=== PATIENT | male | born 1965 | race Caucasian/White ===

== ENCOUNTER → 2016-10-08 | Outpatient (CLI) | payer OTHER ==
[~2016-10-08] MED LIST: BACL10TA PO; COLC0.6T7 PO; FEBU80TA PO; MULT1TAB69 PO; OXYC-202 PO
[2016-10-08 16:35] LABS: BASOPHILS # (AUTO) 0.1 10^3/uL (0.0-0.1); BASOPHILS % (AUTO) 1 % (0-10); EOSINOPHILS # (AUTO) 0.3 10^3/uL (0.0-0.3); EOSINOPHILS % (AUTO) 6 % (0-10); LYMPHOCYTES # (AUTO) 2.4 X 10^3 (1.0-4.0); LYMPHOCYTES % (AUTO) 41 % (12-44); MEAN CORPUSCULAR HEMOGLOBIN 30 PG (25-34); MEAN CORPUSCULAR HGB CONC 34 G/DL (32-36); MEAN CORPUSCULAR VOLUME 86 FL (80-99); MEAN PLATELET VOLUME 10.4 FL (7.4-10.4); MONOCYTES # (AUTO) 0.9 X 10^3 (0.0-1.0); MONOCYTES % (AUTO) 15 % (0-12); NEUTROPHILS # (AUTO) 2.2 X 10^3 (1.8-7.8); NEUTROPHILS % (AUTO) 38 % (42-75); PLATELET COUNT 235 10^3/uL (130-400); RED BLOOD COUNT 5.11 10^6/uL (4.35-5.85); RED CELL DISTRIBUTION WIDTH 13.8 % (10.0-14.5); WHITE BLOOD COUNT 5.9 10^3/uL (4.3-11.0)
[2016-10-08 16:56] LABS: ANION GAP 8 MMOL/L (5-14); BLOOD UREA NITROGEN 12 MG/DL (7-18); BUN/CREATININE RATIO 12; CALCIUM 9.5 MG/DL (8.5-10.1); CARBON DIOXIDE 29 MMOL/L (21-32); CHLORIDE 104 MMOL/L (98-107); CREATININE SERUM 1.03 MG/DL (0.60-1.30); GFR ESTIMATED > 60; GLUCOSE 90 MG/DL (70-105); POTASSIUM 4.4 MMOL/L (3.6-5.0); SODIUM 141 MMOL/L (135-145)
[2016-10-08 17:13] LABS: THYROID STIMULATING HORMONE 1.44 UIU/ML (0.35-4.94)
== END ==
LOC: LAB 16:13
PROVIDERS: ATTEND Internal Medicine
DX: R53.83 Other fatigue (principal); R20.0 Anesthesia of skin
CPT/HCPCS: 36415; 80048; 82607; 84443; 85025

== ENCOUNTER → 2016-12-09 | Outpatient (CLI) | payer OTHER ==
[~2016-12-09] MED LIST changes: +GADOBUTROL 10 MMOL/10 ML (GADAVIST) VIAL IV ONE
--- NOTE | 2016-12-09 11:40 | Diagnostic Imaging Report ---
PROCEDURE: MR imaging cervical spine with and without contrast. TECHNIQUE: Multiplanar and multisequence MRI of the cervical spine was performed with and without contrast. INDICATION: Bilateral hand numbness and tingling. 10 mL of Omnipaque 350 is administered intravenously. FINDINGS: There is satisfactory alignment of the posterior spinal line. There is slight straightening of the lordotic curvature in the cervical spine. The vertebral body heights are preserved. There is disc desiccation at all levels. There is slight disc height loss at C4/5 and moderate disc height loss at C5/6 level. The bone marrow signal is within normal limits with no focal lesion or enhancing mass. The craniocervical junction appears normal. C2/3: There is no disc herniation, no spinal canal or foraminal stenosis. C3/4, there is no disc herniation. No spinal canal or foraminal stenosis. C4/5: There is a prominent disc spur complex with a right posterior-lateral disc protrusion projecting 6 mm posteriorly into the right lateral recess. There is a possible contribution of right uncovertebral hypertrophy and osteophyte projecting posteriorly at this level. There is moderate central canal stenosis reducing the AP dimension of the spinal canal to 7.6 mm. This is slightly displacing the spinal cord posteriorly and to the left and results in minimal cord compression. There is mild cord signal abnormality without enhancement seen at this level more prominent in the left side of the cord. There is bilateral mild to moderate foraminal narrowing from uncovertebral and facet joint hypertrophy bilaterally. C5/6: There is disc spur complex associated with moderate central canal stenosis reducing the AP dimension of the spinal canal to 7.7 mm. There is no cord compression. The disc however indents the thecal sac and is abutting the anterior margin of the spinal cord at this level. No significant foraminal stenosis at this level. C6-7: There is a prominent anterior osteophyte. No posterior osteophytes or disc herniation. No spinal canal or foraminal stenosis. C7/T1: No disc herniation, no spinal canal or foraminal stenosis. No enhancing lesion in the spinal canal or within the spinal cord. IMPRESSION: Degenerative changes most prominent at C4/5 and C5/6 levels. There is minimal cord compression and cord signal abnormality at C4-5 level. Dictated by: Dictated on workstation # [id number]
[2016-12-10 07:30] LABS: LIGHT CHAIN KAPPA SERUM QUANT 10.57 mg/L (3.30-19.40); LIGHT CHAIN LAMBDA SERUM QUANT 8.54 mg/L (5.71-26.30)
[2016-12-11 07:32] LABS: CLIN PATHOLOGY REPORT FOOTNOTE
[2016-12-11 11:14] LABS: ANATOMIC PATH ADDENDUM REPORT FOOTNOTE
[2016-12-14 17:07] LABS: IMMUNOFIX PATH REPORT NUMBER Complete (Complete)
== END ==
LOC: RAD 08:30
DX: R20.0 Anesthesia of skin (principal)
CPT/HCPCS: 36415; 72156; 83883; 86334

== ENCOUNTER 2016-12-23 13:00 | Outpatient (CLI) | payer OTHER ==
[~2016-12-23] VITALS: Ht 182.9 cm; Wt 100.8 kg
[~2016-12-23 13:00] MED LIST changes: -BACL10TA PO; -GADOBUTROL 10 MMOL/10 ML (GADAVIST) VIAL IV ONE; -MULT1TAB69 PO; -OXYC-202 PO
[2016-12-23 13:59] LABS: BASOPHILS # (AUTO) 0.1 10^3/uL (0.0-0.1); BASOPHILS % (AUTO) 1 % (0-10); EOSINOPHILS # (AUTO) 0.2 10^3/uL (0.0-0.3); EOSINOPHILS % (AUTO) 3 % (0-10); LYMPHOCYTES # (AUTO) 2.9 X 10^3 (1.0-4.0); LYMPHOCYTES % (AUTO) 41 % (12-44); MEAN CORPUSCULAR HEMOGLOBIN 30 PG (25-34); MEAN CORPUSCULAR HGB CONC 34 G/DL (32-36); MEAN CORPUSCULAR VOLUME 86 FL (80-99); MEAN PLATELET VOLUME 10.4 FL (7.4-10.4); MONOCYTES # (AUTO) 0.5 X 10^3 (0.0-1.0); MONOCYTES % (AUTO) 7 % (0-12); NEUTROPHILS # (AUTO) 3.4 X 10^3 (1.8-7.8); NEUTROPHILS % (AUTO) 48 % (42-75); PLATELET COUNT 260 10^3/uL (130-400); RED BLOOD COUNT 5.05 10^6/uL (4.35-5.85); RED CELL DISTRIBUTION WIDTH 13.8 % (10.0-14.5)
== END 2016-12-23 13:55 | disposition home or self-care (01) ==
LOC: PREOP 13:00
PROVIDERS: ATTEND Orthopaedic Surgery Orthopaedic Surgery of the Spine
DX: Z01.818 Encounter for other preprocedural examination (principal); M50.221 Other cervical disc displacement at C4-C5 level; M50.222 Other cervical disc displacement at C5-C6 level
CPT/HCPCS: 36415; 85025; 87081

== ENCOUNTER 2016-12-24 07:30 | Inpatient (IN) | payer OTHER ==
[~2016-12-24] VITALS: Ht 182.9 cm; Wt 100.8 kg
[2016-12-28] MEDS ORDERED: ROCURONIUM 50 MG/5 ML (ZEMURON) VIAL IV ONE (06:24)
[2016-12-28] MEDS ORDERED: ONDANSETRON 4 MG/2 ML (SDV) Z0FRAN ONE (06:24)
[2016-12-28] MEDS ORDERED: DEXAMETHASONE PF 10 MG/ML (DECADRON) VIAL ONE (06:24)
[2016-12-28] MEDS ORDERED: LACTATED RINGERS 1,000 ML IV ONE ×3 (06:24→09:55)
[2016-12-28] MEDS ORDERED: proPOfol 200 MG/20 ML (DIPRIVAN) VIAL IV ONE (06:24)
[2016-12-28] MEDS ORDERED: LIDOCAINE PF 2% 10 ML (XYLOCAINE) AMP ONE (06:24)
[2016-12-28] MEDS ORDERED: SEVOFLURANE (ULTANE) 15 ML INHAL SOLN ONE ×3 (06:24→09:05)
[2016-12-28] MEDS ORDERED: MIDAZOLAM 2 MG/2 ML (VERSED) VIAL ONE (06:25)
[2016-12-28] MEDS ORDERED: fentaNYL INJECTION 250 MCG/5 ML AMP ONE (06:25)
[2016-12-28] MEDS ORDERED: SUCCINYLCHOLINE INJ 100 MG/5 ML SYR ONE (06:25)
[2016-12-28] MEDS ORDERED: GENTAMICIN 40 MG/ML 2 ML INJ SDV ONE (06:29)
[2016-12-28] MEDS: LACTATED RINGERS 1,000 ML IV PRN ×3 (06:30→10:00)
[2016-12-28] MEDS ORDERED: ceFAZolin 2 GM/50 ML NS 50 ML ONE (06:31)
[2016-12-28 06:59] VITALS: BP 100/73
[2016-12-28] MEDS ORDERED: ceFAZolin 2 GM/NS 50 ML IV ONE (07:00)
--- NOTE | 2016-12-28 07:05 | Progress Note-Pre Operative ---
Pre-Operative Progress Note H&P Reviewed The H&P was reviewed, patient examined and no changes noted. Date H&P Reviewed: December 28, 2016 Time H&P Reviewed: 07:04 Pre-Operative Diagnosis: Cervical HNP with Myelopathy SHILPI LEVY MD December 28, 2016 7:05 am
[2016-12-28] MEDS ORDERED: NS (IVPB) 100 ML ONE (07:50)
[2016-12-28] MEDS ORDERED: NEOSTIGMINE (BLOXIVERZ ) 1 MG/1ML 10 ML VIAL ONE (08:17)
[2016-12-28] MEDS ORDERED: GLYCOPYRROLATE 0.2 MG/ML (ROBINUL) 2 ML VIAL ONE (08:17)
[2016-12-28] MEDS ORDERED: FAMOTIDINE 20MG/2ML IV (PEPCID) IV SCH (09:00)
[2016-12-28] MEDS ORDERED: morphine INJ 10 MG/ML 1ML (SYR OR VIAL) IVP PRN ×2 (09:00→09:15)
[2016-12-28] MEDS ORDERED: ACETAMINOPHEN 325 MG TABLET/CAPLET (TYLENOL) PO PRN (09:00)
[2016-12-28] MEDS ORDERED: DOCUSATE SODIUM 100 MG (COLACE) CAP PO PRN (09:00)
[2016-12-28] MEDS ORDERED: ONDANSETRON 4 MG/2 ML (SDV) Z0FRAN IV PRN (09:00)
[2016-12-28] MEDS ORDERED: HYDROmorphone (DILAUDID) 2 MG/ML VIAL ONE (09:05)
[2016-12-28] MEDS ORDERED: morphine INJ 10 MG/ML 1ML (SYR OR VIAL) ONE (09:06)
--- NOTE | 2016-12-28 09:12 | Progress Note-Post Operative ---
Post-Operative Progess Note Surgeon (s)/Solution Analyst (s) Surgeon SHILPI LEVY MD Solution Analyst: NEEL Acosta Pre-Operative Diagnosis Cervical HNP with Myelopathy Post-Operative Diagnosis Same Post-Op Procedure Note Date of Procedure: December 28, 2016 Name of Procedure Performed: C4-5, and C5-6 TDR Description of the Procedure: above discs replaced without difficulty with Mobi-C implants Findings of the Procedure HNP Anesthesia Type GETA Estimated blood loss (mL): <50 Specimen(s) collected/removed None SHILPI LEVY MD December 28, 2016 9:11 am
[2016-12-28] MEDS ORDERED: MEPERIDINE (DEMEROL) INJ 50 MG/ML IVP PRN (09:15)
[2016-12-28] MEDS ORDERED: ONDANSETRON 4 MG/2 ML (SDV) Z0FRAN IVP PRN (09:15)
[2016-12-28] MEDS ORDERED: PROMETHAZINE INJ 25 MG/ML (PHENERGAN) AMP IVP PRN (09:15)
[2016-12-28] MEDS: HYDROmorphone (DILAUDID) 2 MG/ML VIAL IVP PRN ×2 (09:30→09:44)
[2016-12-28 10:42] VITALS: BP 93/63
--- NOTE | 2016-12-28 11:04 | Diagnostic Imaging Report ---
INDICATION: Intraoperative views of the cervical spine. INDICATION: C4 through C6 fusion. FLUOROSCOPY TIME: 13 seconds of fluoroscopy time was utilized. IMPRESSION: The provided images demonstrate disc cage placement at the C4-5 and C5-6 levels. Good alignment is seen. Dictated by: Dictated on workstation # [id number]
[2016-12-28] MEDS: NS IV 1000 ML 1,000 ML IV SCH ×2 (11:51→21:52)
[2016-12-28] MEDS: MILK OF MAGNESIA 400 MG/5 ML 30 ML UDC PO SCH (11:52)
[2016-12-28] MEDS: HYDROcodone/APAP 5 MG/325 MG (LORTAB) TAB PO PRN ×3 (12:05→21:41)
[2016-12-28] MEDS ORDERED: ceFAZolin 2 GM/50 ML NS 50 ML IV ONE (13:00)
[2016-12-28] MEDS ORDERED: ceFAZolin INJECTION 2,000 MG in NS (IVPB) 50 ML IV SCH (13:00)
[2016-12-28] MEDS ORDERED: FEBU80TA PO (13:14)
[2016-12-28] MEDS ORDERED: MULT1TAB69 PO (13:18)
[2016-12-28] MEDS: ceFAZolin 2 GM/50 ML NS 50 ML IV SCH ×2 (14:26→21:52)
[2016-12-28 16:25] VITALS: BP 114/75
[2016-12-28 20:18] VITALS: BP 114/70
--- NOTE | 2016-12-28 21:21 | OPERATIVE REPORT ---
DATE OF SERVICE: 12/28/2016 PREOPERATIVE DIAGNOSES: 1. Cervical disk herniation with myelopathy. 2. Cervical radiculopathy. 3. Cervical stenosis neural canal due to disc and osseous structures. POSTOPERATIVE DIAGNOSES: 1. Cervical disk herniation with myelopathy. 2. Cervical radiculopathy. 3. Cervical stenosis neural canal due to disc and osseous structures. PROCEDURE: 1. C4-C5 anterior cervical arthroplasty. 2. C5-C6 anterior cervical arthroplasty. DATE AND TIME OF SURGERY: Please see anesthesia record. IMPLANTS USED: [employer] LDR Mobi-C implants x 2. SURGEON: Dr. Shilpi Chiu. SHEET METAL DUCT INSTALLER APPRENTICE: REFUGIO Orantes. ROLE OF SUPERVISOR COMPOSING ROOM: Aid in retraction of the procedure, suction of neural elements, and wound closure. ANESTHESIA: General. ESTIMATED BLOOD LOSS: Less than 50 mL. IV FLUIDS: Please see anesthesia record. IV ANTIBIOTICS: Ancef. COMPLICATIONS: None. DESCRIPTION OF PROCEDURE: Mr. Jensen is a 51-year-old male with severe neck and arm pain, numbness, weakness, progressive difficulty who desires operative treatment. Intraoperative neuro monitoring was carried out by means of real-time continuous high quality bidirectional mode, audio and visual communication to both the range technician and the surgeon by the remote monitoring physician, SSEPs, EMGs, TCMEPs and TOF's were carried out continuously throughout the procedure stable. DESCRIPTION OF PROCEDURE: The patient was seen in the preop holding area, brought back to the operative suite, after adequate induction of general anesthesia, preoperative antibiotics, placement of monitoring. The patient was placed supine on the OR table. Shoulder roll was placed, head extended, sterile prep and drape to the anterior cervical spine. A standard left-sided Hoffman-Daley approach of the neck was carried out without difficulty. Once the appropriate levels were confirmed, Shadow-Line retractor was placed deep to longus colli for the remainder of the case. Then starting at 4-5, Ona pins placed, anterior dissection performed, disk decompression all the way down to the posterior longitudinal ligament where multiple large fragments of disk material were removed. Once significant diskectomy was achieved and decompression was assured, trial spacer was utilized and the appropriate sized LDR Mobi-C implant was insert and positioned with great fit achieved with stable spinal monitoring. PROCEDURE: The procedure was then carried out at 5-6 level in a similar manner. Once both levels had been adequately decompressed and replaced, hemostasis was achieved with bipolar cautery and Vj-Seal. Wound was copiously irrigated. Hemostasis was assured. Wound was closed in layers. The patient was transferred to the recovery room in stable condition having tolerated the procedure well. Job ID: [id number] DocumentID: [id number] Dictated Date: 12/28/2016 09:08:57 Pest Control Specialist Date: 12/28/2016 09:32:53 Dictated By: SHILPI CHIU MD [facility]
[2016-12-28] MEDS ORDERED: FAMOTIDINE 20 MG (PEPCID) TABLET ONE (21:28)
[2016-12-28] MEDS: FAMOTIDINE 20 MG (PEPCID) TABLET PO SCH (21:39)
[2016-12-28] MEDS: BACLOFEN 10 MG (LIORESAL) TAB PO PRN (21:40)
[2016-12-29] VITALS: BP 125/81
[2016-12-29 04:00] VITALS: BP 108/74
[2016-12-29] MEDS: ceFAZolin 2 GM/50 ML NS 50 ML IV SCH (05:14)
[2016-12-29] MEDS: NS IV 1000 ML 1,000 ML IV SCH (05:26)
--- NOTE | 2016-12-29 06:20 | Progress Note (SOAP) ---
Subjective Subjective/Events-last exam Pain ok, hands still little numb Objective Exam Vital Signs Date Time Temp Pulse Resp B/P (MAP) Pulse Ox O2 Delivery O2 Flow Rate FiO2 12/29/16 04:00 97.9 84 20 108/74 95 Room Air 12/29/16 00:00 97.3 83 20 125/81 95 Room Air 12/28/16 20:18 97.4 76 18 114/70 93 Room Air 12/28/16 16:25 96.8 79 18 114/75 95 Nasal Cannula 3.00 12/28/16 11:27 96 3.00 12/28/16 11:00 2.00 12/28/16 10:42 96.6 65 16 93/63 96 Nasal Cannula 3.00 12/28/16 06:59 98.0 67 16 100/73 97 Room Air I & O 12/29/16 07:00 Intake Total 6004 ml Output Total 1175 ml Balance 4829 ml Capillary Refill : General Appearance: No Apparent Distress HEENT: Other (Phonation good, no stridor, trachea midline, dressing dry) Neck: Supple, Other (Good ROM, ) Respiratory: No Accessory Muscle Use, No Respiratory Distress Neurologic/Psychiatric: Alert, Oriented x3, Sensory Deficit Assessment/Plan Assessment/Plan Assess & Plan/Chief Complaint Cervical HNP with myelopathy Cervical Stenosis S/P C4-6 TDR D/C Home today, instructions given Clinical Quality Measures DVT/VTE Risk/Contraindication: Risk Factor Score Per Nursin RFS Level Per Nursing on Admit: 3=High SHILPI LEVY MD December 29, 2016 06:20
[2016-12-29] MEDS ORDERED: BACL10TA PO (06:23)
[2016-12-29] MEDS ORDERED: OXYC-202 PO (06:23)
[2016-12-29] MEDS ORDERED: CATHETER FLUSH 10 ML SYR IV PRN (07:45)
[2016-12-29 08:00] VITALS: BP 117/73
[2016-12-29] MEDS: MILK OF MAGNESIA 400 MG/5 ML 30 ML UDC PO SCH (08:32)
[2016-12-29] MEDS: FAMOTIDINE 20 MG (PEPCID) TABLET PO SCH (08:32)
[2016-12-29] MEDS: HYDROcodone/APAP 5 MG/325 MG (LORTAB) TAB PO PRN (08:33)
[2016-12-29] MEDS: BACLOFEN 10 MG (LIORESAL) TAB PO PRN (08:33)
--- NOTE | 2016-12-29 08:55 | Diagnostic Imaging Report ---
INDICATION: Postop. COMPARISON: Correlation is limited to an MRI performed on 12/09/2016. FINDINGS: C4-5 and C5-C6 interbody fusion has been performed in the interim with an improvement in the interbody height. The alignment is anatomic. There is some presumed post operative swelling of the soft tissues ventral to the of mid to lower cervical spine as well as some bubbles of soft tissue gas. No suspicious opaque foreign body. The alignment is anatomic. IMPRESSION: Interval post operative changes in anatomic alignment with no suspicious retained opaque postop foreign body. Dictated by: Dictated on workstation # [id number]
--- NOTE | 2016-12-29 09:59 | Physical Therapy Progress Note ---
Therapy Progress Note Per patient report, he is up independently in room without difficulty and will dismiss to home with spouse on this date. PT educated patient on importance of ambulating PRN at home to prevent blood clots and pneumonia. Patient and spouse voice understanding. No skilled PT indicated. 1 visit GISSELL VICTOR PT December 29, 2016 09:59
== END 2016-12-29 08:40 | disposition home or self-care (01) | DRG 518 ==
LOC: EEVIPCON 12-28 06:13 → 4TH 12-28 06:13 → SURG 12-28 06:14 → EDSTATUS 12-28 07:00 → 4TH 12-28 11:11
PROVIDERS: ADMIT Orthopaedic Surgery Orthopaedic Surgery of the Spine; ATTEND Orthopaedic Surgery Orthopaedic Surgery of the Spine
PROC: 0RR30JZ Replacement of Cervical Vertebral Disc with Synthetic Substitute, Open Approach (ICD-10-PCS; principal; 2016-12-28 07:11)
DX: M50.021 Cervical disc disorder at C4-C5 level with myelopathy (principal)
CPT/HCPCS: 72040; 94664; 94760

== ENCOUNTER 2017-01-14 11:03 | Outpatient (RCR) | payer OTHER ==
[~2017-01-14 11:03] MED LIST changes: +BACL10TA PO; +MULT1TAB69 PO; +OXYC-202 PO
== END 2017-03-09 14:03 | disposition home or self-care (01) ==
PROVIDERS: ATTEND Orthopaedic Surgery Orthopaedic Surgery of the Spine
DX: M50.021 Cervical disc disorder at C4-C5 level with myelopathy (principal)

== ENCOUNTER → 2018-12-21 | Outpatient (CLI) | payer OTHER ==
[~2018-12-21] MED LIST changes: -OXYC-202 PO; +OXYC1TAB12 PO
--- NOTE | 2018-12-21 11:24 | Diagnostic Imaging Report ---
PROCEDURE: MRI lumbar spine. TECHNIQUE: Multiplanar, multisequence MRI of the lumbar spine was performed without contrast. INDICATION: Severe low back pain with left lower extremity radiculopathy. COMPARISON: No prior studies are available for comparison. FINDINGS: Curvature and alignment of the lumbar spine is normal. Vertebral body heights are maintained. The marrow signal intensity is unremarkable. No geographic marrow lesion or fracture is seen. There is some mild generalized degenerative disc disease and disc desiccation. There is loss of disc height at the L5-S1 level. There are postsurgical changes of left hemilaminectomy at L5-S1. The conus is unremarkable T12-L1 level. T12-L1: Central canal is patent. No neural foraminal stenosis is seen. L1-2: Central canal is patent. There is some linear signal in the posterior annulus at this level suggestive of an annular tear but no disc bulging is seen. Neural foramina are patent. L2-3: Central canal is widely patent. Neural foramina are widely patent. L3-4: Minimal ligamentous thickening is present. Central canal is widely patent. Neural foramina are patent. L4-5: Annular bulging flattens the ventral thecal sac. Central canal is patent. There is narrowing of the lateral recesses bilaterally. Sagittal images demonstrate abnormal soft tissue in the far lateral aspect on the left which appears to be separate from the exiting left sided nerve root. This is consistent with an extruded disc. This significantly narrows the left neural foramen. There is also moderate narrowing due to broad-based disc bulging on the right side neural foramen. L5-S1: Postop changes are noted. There is broad-based asymmetric to the left disc bulging indenting the ventral thecal sac. Central canal remains patent. There is narrowing of the left lateral recess. There also appears to be moderate bilateral neural foraminal stenosis. Paraspinous tissues are unremarkable. IMPRESSION: 1. Lumbar spondylosis. There are postop changes at the L5-S1 level. L5-S1 does show some broad-based disc bulging with left lateral recess and bilateral neural foraminal stenosis. 2. Findings consistent with left far lateral extruded disc at L4-5 level, impinging upon the exiting left-sided L4-5 nerve root. There is mild neural foraminal stenosis on the right side as well. The central canal is patent. Dictated by: Dictated on workstation # [id number]
== END ==
LOC: RAD 10:01
PROVIDERS: ATTEND Orthopaedic Surgery Orthopaedic Surgery of the Spine
DX: M51.17 Intervertebral disc disorders with radiculopathy, lumbosacral region (principal); M47.26 Other spondylosis with radiculopathy, lumbar region; M48.07 Spinal stenosis, lumbosacral region; Z98.890 Other specified postprocedural states
CPT/HCPCS: 72148

== ENCOUNTER 2018-12-26 11:36 | Day surgery (SDC) | payer OTHER ==
[2018-12-26] VITALS (11 sets, daily range): BP systolic 103–125; BP diastolic 61–88
[~2018-12-26] VITALS: Ht 182.9 cm; Wt 95.3 kg
[2018-12-26] MEDS ORDERED: BACITRACIN OINTMENT 28 GM TUBE ONE (11:49)
[2018-12-26] MEDS ORDERED: GENTAMICIN 40 MG/ML 2 ML INJ SDV ONE (11:50)
[2018-12-26] MEDS ORDERED: BUP/EPI 0.25% 1:200,000 (MARCAINE) 10 ML VIAL IJ ONE (11:50)
[2018-12-26] MEDS ORDERED: ROCURONIUM 10 MG/ML 5 ML SYRINGE IV ONE (12:10)
[2018-12-26] MEDS ORDERED: ONDANSETRON 4 MG/2 ML (SDV) Z0FRAN ONE (12:10)
[2018-12-26] MEDS ORDERED: proPOfol 200 MG/20 ML (DIPRIVAN) VIAL IV ONE ×2 (12:10→14:07)
[2018-12-26] MEDS ORDERED: fentaNYL INJECTION 100 MCG/2 ML AMP ONE ×2 (12:10→13:17)
[2018-12-26] MEDS ORDERED: LIDOCAINE PF 2% 5 ML (XYLOCAINE) VIAL ONE (12:10)
[2018-12-26] MEDS ORDERED: SEVOFLURANE (ULTANE) 15 ML INHAL SOLN ONE ×2 (12:10→15:17)
[2018-12-26] MEDS ORDERED: NEOSTIGMINE 1 MG/ML 5 ML SYRINGE ONE (12:10)
[2018-12-26] MEDS ORDERED: GLYCOPYRROLATE 0.2 MG/ML (ROBINUL) 2 ML VIAL ONE (12:10)
[2018-12-26] MEDS ORDERED: DEXAMETHASONE 10 MG/ML (DECADRON) 1 ML VIAL ONE (12:10)
[2018-12-26] MEDS: LACTATED RINGERS 1,000 ML IV PRN ×2 (12:15→14:36)
[2018-12-26] MEDS ORDERED: MIDAZOLAM 2 MG/2 ML (VERSED) VIAL IV ONE (12:15)
[2018-12-26] MEDS ORDERED: HYDR-3812 PO (12:29)
[2018-12-26] MEDS ORDERED: DOCU-163 PO (12:31)
[2018-12-26] MEDS ORDERED: DEXL30CA2 PO (12:31)
--- OUTSIDE RECORDS SUMMARY | 2018-12-26 12:41 | XMS REPORT | Continuity of Care Document ---
Author Organization Unknown Address Unknown Allergies Active Description Code Type Severity Reaction Onset Reported/Identified Relationship to Patient Clinical Status Yes No Known Drug Allergies [id number] Drug Allergy Unknown N/A 04/28/2013 Medications There is no data. Problems Date Dx Coded Attending Type Code Diagnosis Diagnosed By 05/03/2013 LAZARUS ROLDAN MD Ot 719.45 JOINT PAIN-PELVIS 05/03/2013 LAZARUS ROLDAN MD Ot 843.9 SPRAIN HIP THIGH NOS 05/03/2013 LAZARUS ROLDAN MD Ot E000.8 OTHER EXTERNAL CAUSE STATUS 05/03/2013 LAZARUS ROLDAN MD Ot E006.2 ACTIVITIES INVOLVING GOLF 05/03/2013 LAZARUS ROLDAN MD Ot E928.9 ACCIDENT NOS 05/03/2013 LAZARUS ROLDAN MD Ot V57.1 PHYSICAL THERAPY NEC 09/29/2014 LAZARUS ROLDAN MD Ot 274.9 01/07/2015 Ot 274.9 01/07/2015 Ot 790.6 01/07/2015 Ot 274.9 01/07/2015 Ot 274.9 01/07/2015 Ot 274.9 01/07/2015 Ot V58.69 01/07/2015 Ot 274.9 01/07/2015 Ot 272.1 01/07/2015 Ot 790.29 01/07/2015 Ot 274.9 01/07/2015 ADITYA KUMAR, AMY Dillard Ot 211.3 01/07/2015 ADITYA KUMAR, AMY Dillard Ot 562.10 01/07/2015 ADITYA KUMAR, AMY Dillard Ot V76.51 01/07/2015 ADITYA KUMAR, AMY Dillard Ot V72.84 01/07/2015 LAZARUS ROLDAN MD Ot 274.9 01/07/2015 LAZARUS ROLDAN MD Ot V58.69 01/07/2015 LAZARUS ROLDAN MD Ot V76.44 01/07/2015 LAZARUS ROLDAN MD Ot V58.69 01/07/2015 JAMAR KUMAR, LAZARUS M Ot V58.83 01/07/2015 JAMAR KUMAR, LAZARUS M Ot 272.4 01/07/2015 JAMAR KUMAR, LAZARUS M Ot 274.9 01/07/2015 JAMAR KUMAR, LAZARUS M Ot V58.69 01/07/2015 JAMAR KUMAR, LAZARUS M Ot 274.9 09/03/2015 Ot 274.9 09/03/2015 Ot 274.9 09/03/2015 Ot 274.9 09/03/2015 Ot V58.69 09/03/2015 Ot 274.9 09/03/2015 Ot 272.1 09/03/2015 Ot 790.29 09/03/2015 Ot 274.9 09/03/2015 ADITYA KUMAR, AMY Dillard Ot 211.3 09/03/2015 ADITYA KUMAR, AMY Dillard Ot 562.10 09/03/2015 ADITYA KUMAR, AMY Dillard Ot V76.51 09/03/2015 ADITYA KUMAR, AMY Dillard Ot V72.84 09/03/2015 JAMAR KUMAR, LAZARUS M Ot 274.9 09/03/2015 JAMAR KUMAR, LAZARUS M Ot V58.69 09/03/2015 JAMAR KUMAR, LAZARUS M Ot V76.44 09/03/2015 JAMAR KUMAR, LAZARUS M Ot V58.69 09/03/2015 JAMAR KUMAR, LAZARUS M Ot V58.83 09/03/2015 JAMAR KUMAR, LAZARUS M Ot 272.4 09/03/2015 JAMAR KUMAR, LAZARUS M Ot 274.9 09/03/2015 JAMAR KUMAR, LAZARUS M Ot V58.69 09/03/2015 JAMAR KUMAR, LAZARUS M Ot 274.9 12/19/2015 Ot 274.9 GOUT NOS 12/19/2015 Ot 274.9 GOUT NOS 12/19/2015 Ot 274.9 GOUT NOS 12/19/2015 Ot V58.69 OTH MED,LT, CURRENT USE 12/19/2015 Ot 274.9 GOUT NOS 12/19/2015 Ot 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 12/19/2015 Ot 790.29 OTHER ABNORMAL GLUCOSE 12/19/2015 Ot 274.9 GOUT NOS 12/19/2015 AMY BURGESS MD Ot 211.3 BENIGN NEOPLASM LG BOWEL 12/19/2015 AMY BURGESS MD Ot 562.10 DIVERTICULOSIS COLON (W/O MENT OF HEMORR 12/19/2015 AMY BURGESS MD Ot V76.51 SCREEN MAL NEOP-COLON 12/19/2015 AMY BURGESS MD Ot V72.84 EXAM PRE-OPERATIVE NOS 12/19/2015 LAZARUS ROLDAN MD Ot 274.9 GOUT NOS 12/19/2015 LAZARUS ROLDAN MD Ot V58.69 OTH MED,LT,CURRENT USE 12/19/2015 LAZARUS ROLDAN MD Ot V76.44 SCREEN MAL NEOP-PROSTATE 12/19/2015 LAZARUS ROLDAN MD Ot V58.69 OTH MED,LT,CURRENT USE 12/19/2015 LAZARUS ROLDAN MD Ot V58.83 ENCOUNTER FOR THERAPEUTIC DRUG MONITORIN 12/19/2015 LAZARUS ROLDAN MD Ot 272.4 HYPERLIPIDEMIA NEC/NOS 12/19/2015 LAZARUS ROLDAN MD Ot 274.9 GOUT NOS 12/19/2015 LAZARUS ROLDAN MD Ot V58.69 OTH MED,LT,CURRENT USE 12/19/2015 LAZARUS ROLDAN MD Ot 274.9 GOUT NOS 02/01/2016 Ot 274.9 GOUT NOS 02/01/2016 Ot 274.9 GOUT NOS 02/01/2016 Ot 274.9 GOUT NOS 02/01/2016 Ot V58.69 OTH MED,LT, CURRENT USE 02/01/2016 Ot 274.9 GOUT NOS 02/01/2016 Ot 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 02/01/2016 Ot 790.29 OTHER ABNORMAL GLUCOSE 02/01/2016 Ot 274.9 GOUT NOS 02/01/2016 AMY BURGESS MD Ot 211.3 BENIGN NEOPLASM LG BOWEL 02/01/2016 AMY BURGESS MD Ot 562.10 DIVERTICULOSIS COLON (W/O MENT OF HEMORR 02/01/2016 AMY BURGESS MD Ot V76.51 SCREEN MAL NEOP-COLON 02/01/2016 AMY BURGESS MD Ot V72.84 EXAM PRE-OPERATIVE NOS 02/01/2016 LAZARUS ROLDAN MD Ot 274.9 GOUT NOS 02/01/2016 LAZARUS ROLDAN MD Ot V58.69 OTH MED,LT,CURRENT USE 02/01/2016 LAZARUS ROLDAN MD Ot V76.44 SCREEN MAL NEOP-PROSTATE 02/01/2016 LAZARUS ROLDAN MD Ot V58.69 OTH MED,LT,CURRENT USE 02/01/2016 LAZARUS ROLDAN MD Ot V58.83 ENCOUNTER FOR THERAPEUTIC DRUG MONITORIN 02/01/2016 LAZARUS ROLDAN MD Ot 272.4 HYPERLIPIDEMIA NEC/NOS 02/01/2016 LAZARUS ROLDAN MD Ot 274.9 GOUT NOS 02/01/2016 LAZARUS ROLDAN MD Ot V58.69 OTH MED,LT,CURRENT USE 02/01/2016 LAZARUS ROLDAN MD Ot 274.9 GOUT NOS 02/03/2016 ADITYA KUMAR, AMY Dillard Ot M10.9 GOUT, UNSPECIFIED 02/03/2016 AMY BURGESS MD Ot Z00.00 ENCNTR FOR GENERAL ADULT MEDICAL EXAM W/ 02/04/2016 Ot 274.9 GOUT NOS 02/04/2016 Ot 274.9 GOUT NOS 02/04/2016 Ot 274.9 GOUT NOS 02/04/2016 Ot V58.69 OTH MED,LT, CURRENT USE 02/04/2016 Ot 274.9 GOUT NOS 02/04/2016 Ot 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 02/04/2016 Ot 790.29 OTHER ABNORMAL GLUCOSE 02/04/2016 Ot 274.9 GOUT NOS 02/04/2016 AMY BURGESS MD Ot 211.3 BENIGN NEOPLASM LG BOWEL 02/04/2016 AMY BURGESS MD Ot 562.10 DIVERTICULOSIS COLON (W/O MENT OF HEMORR 02/04/2016 AMY BURGESS MD Ot V76.51 SCREEN MAL NEOP-COLON 02/04/2016 AMY BURGESS MD Ot V72.84 EXAM PRE-OPERATIVE NOS 02/04/2016 LAZARUS ROLDAN MD Ot 274.9 GOUT NOS 02/04/2016 LAZARUS ROLDAN MD Ot V58.69 OTH MED,LT,CURRENT USE 02/04/2016 LAZARUS ROLDAN MD Ot V76.44 SCREEN MAL NEOP-PROSTATE 02/04/2016 LAZARUS ROLDAN MD Ot V58.69 OTH MED,LT,CURRENT USE 02/04/2016 JAMAR KUMAR, LAZARUS Ray Ot V58.83 ENCOUNTER FOR THERAPEUTIC DRUG MONITORIN 02/04/2016 JAMAR KUMAR, LAZARUS Ray Ot 272.4 HYPERLIPIDEMIA NEC/NOS 02/04/2016 JAMAR KUMAR, LAZARUS Ray Ot 274.9 GOUT NOS 02/04/2016 JAMAR KUMAR, LAZARUS Ray Ot V58.69 OTH MED,LT,CURRENT USE 02/04/2016 JAMAR KUMAR, LAZARUS Ray Ot 274.9 GOUT NOS 02/04/2016 ADITYA KUMAR, AMY Dillard Ot M10.9 GOUT, UNSPECIFIED 02/04/2016 ADITYA KUMAR, AMY Dillard Ot Z00.00 ENCNTR FOR GENERAL ADULT MEDICAL EXAM W02/09/2016 ADITYA KUMAR, AMY Dillard Ot M10.9 GOUT, UNSPECIFIED 02/09/2016 ADITYA KUMAR, AMY Dillard Ot Z00.00 ENCNTR FOR GENERAL ADULT MEDICAL EXAM W/ 02/27/2016 AMY BURGESS MD Ot M10.9 GOUT, UNSPECIFIED 02/27/2016 ADITYA KUMAR, AMY Dillard Ot Z00.00 ENCNTR FOR GENERAL ADULT MEDICAL EXAM W08/07/2016 AMY BURGESS MD Ot R10.9 UNSPECIFIED ABDOMINAL PAIN 10/08/2016 Ot 274.9 GOUT NOS 10/08/2016 Ot 274.9 GOUT NOS 10/08/2016 Ot V58.69 OTH MED,LT, CURRENT USE 10/08/2016 Ot 274.9 GOUT NOS 10/08/2016 Ot 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 10/08/2016 Ot 790.29 OTHER ABNORMAL GLUCOSE 10/08/2016 Ot 274.9 GOUT NOS 10/08/2016 ADITYA KUMAR, AMY Dillard Ot 211.3 BENIGN NEOPLASM LG BOWEL 10/08/2016 ADITYA KUMAR, AMY Dillard Ot 562.10 DIVERTICULOSIS COLON (W/O MENT OF HEMORR 10/08/2016 ADITYA KUMAR, AMY Dillard Ot V76.51 SCREEN MAL NEOP-COLON 10/08/2016 AMY UBRGESS MD Ot V72.84 EXAM PRE-OPERATIVE NOS 10/08/2016 JAMAR KUMAR, LAZARUS Ray Ot 274.9 GOUT NOS 10/08/2016 LAZARUS ROLDAN MD Ot V58.69 OTH MED,LT,CURRENT USE 10/08/2016 LAZARUS ROLDAN MD Ot V76.44 SCREEN MAL NEOP-PROSTATE 10/08/2016 LAZARUS ROLDAN MD Ot V58.69 OTH MED,LT,CURRENT USE 10/08/2016 LAZARUS ROLDAN MD Ot V58.83 ENCOUNTER FOR THERAPEUTIC DRUG MONITORIN 10/08/2016 LAZARUS ROLDAN MD Ot 272.4 HYPERLIPIDEMIA NEC/NOS 10/08/2016 LAZARUS ROLDAN MD Ot 274.9 GOUT NOS 10/08/2016 LAZARUS ROLDAN MD Ot V58.69 OTH MED,LT,CURRENT USE 10/08/2016 LAZARUS ROLDAN MD Ot 274.9 GOUT NOS 10/08/2016 ADITYA KUMAR, AMY Dillard Ot M10.9 GOUT, UNSPECIFIED 10/08/2016 AMY BURGESS MD Ot Z00.00 ENCNTR FOR GENERAL ADULT MEDICAL EXAM W/ 10/08/2016 AMY BURGESS MD Ot R10.9 UNSPECIFIED ABDOMINAL PAIN 11/04/2016 AMY BURGESS MD Ot R20.0 ANESTHESIA OF SKIN 11/04/2016 AMY BURGESS MD Ot R53.83 OTHER FATIGUE 12/11/2016 RERE BOTELLO MD, JACQUIE W Ot R20.0 ANESTHESIA OF SKIN 12/23/2016 SHILPI LEVY MD Ot M50.221 OTHER CERVICAL DISC DISPLACEMENT AT C4-C 12/23/2016 SHILPI LEVY MD Ot M50.222 OTHER CERVICAL DISC DISPLACEMENT AT C5-C 12/23/2016 SHILPI LEVY MD Ot Z01.818 ENCOUNTER FOR OTHER PREPROCEDURAL EXAMIN 12/23/2016 SHILPI LEVY MD Ot M50.221 OTHER CERVICAL DISC DISPLACEMENT AT C4-C 12/23/2016 SHILPI LEVY MD Ot M50.222 OTHER CERVICAL DISC DISPLACEMENT AT C5-C 12/23/2016 SHILPI LEVY MD Ot Z01.818 ENCOUNTER FOR OTHER PREPROCEDURAL EXAMIN 12/23/2016 SHILPI LEVY MD Ot M50.221 OTHER CERVICAL DISC DISPLACEMENT AT C4-C 12/23/2016 SHILPI LEVY MD Ot M50.222 OTHER CERVICAL DISC DISPLACEMENT AT C5-C 12/23/2016 SHILPI LEVY MD Ot Z01.818 ENCOUNTER FOR OTHER PREPROCEDURAL EXAMIN 12/23/2016 SHILPI LEVY MD Ot M50.221 OTHER CERVICAL DISC DISPLACEMENT AT C4-C 12/23/2016 SHILPI LEVY MD Ot M50.222 OTHER CERVICAL DISC DISPLACEMENT AT C5-C 12/23/2016 SHILPI LEVY MD Ot Z01.818 ENCOUNTER FOR OTHER PREPROCEDURAL EXAMIN 12/29/2016 SHILPI LEVY MD Ot M50.021 CERVICAL DISC DISORDER AT C4-C5 LEVEL [place] 01/27/2017 RERE BOTELLO MD, JACQUIE Millan Ot R20.0 ANESTHESIA OF SKIN 03/09/2017 SHILPI LEVY MD Ot M50.021 CERVICAL DISC DISORDER AT C4-C5 LEVEL [place] 06/10/2017 Ot 274.9 GOUT NOS 06/10/2017 Ot 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 06/10/2017 Ot 790.29 OTHER ABNORMAL GLUCOSE 06/10/2017 Ot 274.9 GOUT NOS 06/10/2017 AMY BURGESS MD Ot 211.3 BENIGN NEOPLASM LG BOWEL 06/10/2017 AMY BURGESS MD Ot 562.10 DIVERTICULOSIS COLON (W/O MENT OF HEMORR 06/10/2017 AMY BURGESS MD Ot V76.51 SCREEN MAL NEOP-COLON 06/10/2017 ADITYA KUMAR, AMY Dillard Ot V72.84 EXAM PRE-OPERATIVE NOS 06/10/2017 LAZARUS ROLDAN MD Ot 274.9 GOUT NOS 06/10/2017 LAZARUS ROLDAN MD Ot V58.69 OTH MED,LT,CURRENT USE 06/10/2017 LAZARUS ROLDAN MD Ot V76.44 SCREEN MAL NEOP-PROSTATE 06/10/2017 LAZARUS ROLDAN MD Ot V58.69 OTH MED,LT,CURRENT USE 06/10/2017 LAZARUS ROLDAN MD Ot V58.83 ENCOUNTER FOR THERAPEUTIC DRUG MONITORIN 06/10/2017 LAZARUS ROLDAN MD Ot 272.4 HYPERLIPIDEMIA NEC/NOS 06/10/2017 LAZARUS ROLDAN MD Ot 274.9 GOUT NOS 06/10/2017 LAZARUS ROLDAN MD Ot V58.69 OTH MED,LT,CURRENT USE 06/10/2017 LAZARUS ROLDAN MD Ot 274.9 GOUT NOS 06/10/2017 AMY BURGESS MD Ot M10.9 GOUT, UNSPECIFIED 06/10/2017 AMY BURGESS MD Ot Z00.00 ENCNTR FOR GENERAL ADULT MEDICAL EXAM W/ 06/10/2017 AMY BURGESS MD Ot R10.9 UNSPECIFIED ABDOMINAL PAIN 06/10/2017 AMY BURGESS MD Ot R20.0 ANESTHESIA OF SKIN 06/10/2017 AMY BURGESS MD Ot R53.83 OTHER FATIGUE 06/10/2017 RERE BOTELLO MD, JACQUIE W Ot R20.0 ANESTHESIA OF SKIN 12/09/2017 Ot 274.9 GOUT NOS 12/09/2017 ADITYA KUMAR, AMY Dillard Ot 211.3 BENIGN NEOPLASM LG BOWEL 12/09/2017 AMY BURGESS MD Ot 562.10 DIVERTICULOSIS COLON (W/O MENT OF HEMORR 12/09/2017 AMY BURGESS MD Ot V76.51 SCREEN MAL NEOP-COLON 12/09/2017 AMY BURGESS MD Ot V72.84 EXAM PRE-OPERATIVE NOS 12/09/2017 LAZARUS ROLDAN MD Ot 274.9 GOUT NOS 12/09/2017 LAZARUS ROLDAN MD Ot V58.69 OTH MED,LT,CURRENT USE 12/09/2017 LAZARUS ROLDAN MD Ot V76.44 SCREEN MAL NEOP-PROSTATE 12/09/2017 LAZARUS ROLDAN MD Ot V58.69 OTH MED,LT,CURRENT USE 12/09/2017 LAZARUS ROLDAN MD Ot V58.83 ENCOUNTER FOR THERAPEUTIC DRUG MONITORIN 12/09/2017 LAZARUS ROLDAN MD Ot 272.4 HYPERLIPIDEMIA NEC/NOS 12/09/2017 LAZARUS ROLDAN MD Ot 274.9 GOUT NOS 12/09/2017 LAZARUS ROLDAN MD Ot V58.69 OTH MED,LT,CURRENT USE 12/09/2017 LAZARUS ROLDAN MD Ot 274.9 GOUT NOS 12/09/2017 AMY BURGESS MD Ot M10.9 GOUT, UNSPECIFIED 12/09/2017 AMY BURGESS MD Ot Z00.00 ENCNTR FOR GENERAL ADULT MEDICAL EXAM W/ 12/09/2017 AMY BURGESS MD Ot R10.9 UNSPECIFIED ABDOMINAL PAIN 12/09/2017 BURGESS MD, AMY D Ot R20.0 ANESTHESIA OF SKIN 12/09/2017 AMY BURGESS MD Ot R53.83 OTHER FATIGUE 12/09/2017 RERE BOTELLO MD, JACQUIE W Ot R20.0 ANESTHESIA OF SKIN 12/09/2017 Ot 274.9 GOUT NOS 12/09/2017 AMY BURGESS MD Ot 211.3 BENIGN NEOPLASM LG BOWEL 12/09/2017 AMY BURGESS MD Ot 562.10 DIVERTICULOSIS COLON (W/O MENT OF HEMORR 12/09/2017 AMY BURGESS MD Ot V76.51 SCREEN MAL NEOP-COLON 12/09/2017 AMY BURGESS MD Ot V72.84 EXAM PRE-OPERATIVE NOS 12/09/2017 JAMAR KUMAR, LAZARUS Ray Ot 274.9 GOUT NOS 12/09/2017 LAZARUS ROLDAN MD Ot V58.69 OTH MED,LT,CURRENT USE 12/09/2017 LAZARUS ROLDAN MD Ot V76.44 SCREEN MAL NEOP-PROSTATE 12/09/2017 LAZARUS ROLDAN MD Ot V58.69 OTH MED,LT,CURRENT USE 12/09/2017 LAZARUS ROLDAN MD Ot V58.83 ENCOUNTER FOR THERAPEUTIC DRUG MONITORIN 12/09/2017 LAZARUS ROLDAN MD Ot 272.4 HYPERLIPIDEMIA NEC/NOS 12/09/2017 LAZARUS ROLDAN MD Ot 274.9 GOUT NOS 12/09/2017 LAZARUS ROLDAN MD Ot V58.69 OTH MED,LT,CURRENT USE 12/09/2017 LAZARUS ROLDAN MD Ot 274.9 GOUT NOS 12/09/2017 AMY BURGESS MD Ot M10.9 GOUT, UNSPECIFIED 12/09/2017 AMY BURGESS MD Ot Z00.00 ENCNTR FOR GENERAL ADULT MEDICAL EXAM W/ 12/09/2017 AMY BURGESS MD Ot R10.9 UNSPECIFIED ABDOMINAL PAIN 12/09/2017 AMY BURGESS MD Ot R20.0 ANESTHESIA OF SKIN 12/09/2017 AMY BURGESS MD Ot R53.83 OTHER FATIGUE 12/09/2017 RERE BOTELLO MD, JACQUIE W Ot R20.0 ANESTHESIA OF SKIN 12/09/2017 Ot 274.9 GOUT NOS 12/09/2017 AMY BURGESS MD Ot 211.3 BENIGN NEOPLASM LG BOWEL 12/09/2017 AMY BURGESS MD Ot 562.10 DIVERTICULOSIS COLON (W/O MENT OF HEMORR 12/09/2017 AMY BURGESS MD Ot V76.51 SCREEN MAL NEOP-COLON 12/09/2017 AMY BURGESS MD Ot V72.84 EXAM PRE-OPERATIVE NOS 12/09/2017 LAZARUS ROLDAN MD M Ot 274.9 GOUT NOS 12/09/2017 LAZARUS ROLDAN MD M Ot V58.69 OTH MED,LT,CURRENT USE 12/09/2017 LAZARUS ROLDAN MD Ot V76.44 SCREEN MAL NEOP-PROSTATE 12/09/2017 LAZARUS ROLDAN MD M Ot V58.69 OTH MED,LT,CURRENT USE 12/09/2017 LAZARUS ROLDAN MD M Ot V58.83 ENCOUNTER FOR THERAPEUTIC DRUG MONITORIN 12/09/2017 LAZARUS ROLDAN MD M Ot 272.4 HYPERLIPIDEMIA NEC/NOS 12/09/2017 EBONI ROLDAN MDEEN M Ot 274.9 GOUT NOS 12/09/2017 LAZARUS ROLDAN MD M Ot V58.69 OTH MED,LT,CURRENT USE 12/09/2017 LAZARUS ROLDAN MD M Ot 274.9 GOUT NOS 12/09/2017 AMY BURGESS MD Ot M10.9 GOUT, UNSPECIFIED 12/09/2017 AMY BURGESS MD Ot Z00.00 ENCNTR FOR GENERAL ADULT MEDICAL EXAM W/ 12/09/2017 AMY BURGESS MD Ot R10.9 UNSPECIFIED ABDOMINAL PAIN 12/09/2017 AMY BURGESS MD Ot R20.0 ANESTHESIA OF SKIN 12/09/2017 AMY BURGESS MD Ot R53.83 OTHER FATIGUE 12/09/2017 RERE BOTELLO MD, JACQUIE W Ot R20.0 ANESTHESIA OF SKIN 12/10/2017 Ot 274.9 GOUT NOS 12/10/2017 AMY BURGESS MD Ot 211.3 BENIGN NEOPLASM LG BOWEL 12/10/2017 AMY BURGESS MD Ot 562.10 DIVERTICULOSIS COLON (W/O MENT OF HEMORR 12/10/2017 AMY BURGESS MD Ot V76.51 SCREEN MAL NEOP-COLON 12/10/2017 AMY BURGESS MD Ot V72.84 EXAM PRE-OPERATIVE NOS 12/10/2017 LAZARUS ROLDAN MD Ot 274.9 GOUT NOS 12/10/2017 LAZARUS ROLDAN MD Ot V58.69 OTH MED,LT,CURRENT USE 12/10/2017 LAZARUS ROLDAN MD Ot V76.44 SCREEN MAL NEOP-PROSTATE 12/10/2017 LAZARUS ROLDAN MD Ot V58.69 OTH MED,LT,CURRENT USE 12/10/2017 LAZARUS ROLDAN MD Ot V58.83 ENCOUNTER FOR THERAPEUTIC DRUG MONITORIN 12/10/2017 LAZARUS ROLDAN MD Ot 272.4 HYPERLIPIDEMIA NEC/NOS 12/10/2017 LAZARUS ROLDAN MD Ot 274.9 GOUT NOS 12/10/2017 LAZARUS ROLDAN MD Ot V58.69 OTH MED,LT,CURRENT USE 12/10/2017 LAZARUS ROLDAN MD Ot 274.9 GOUT NOS 12/10/2017 AMY BURGESS MD Ot M10.9 GOUT, UNSPECIFIED 12/10/2017 ADITYA KUMAR, AMY Dillard Ot Z00.00 ENCNTR FOR GENERAL ADULT MEDICAL EXAM W/ 12/10/2017 AMY BURGESS MD Ot R10.9 UNSPECIFIED ABDOMINAL PAIN 12/10/2017 AMY BURGESS MD Ot R20.0 ANESTHESIA OF SKIN 12/10/2017 AMY BURGESS MD Ot R53.83 OTHER FATIGUE 12/10/2017 RERE BOTELLO MD, JACQUIE W Ot R20.0 ANESTHESIA OF SKIN 12/21/2018 SHILPI LEVY MD Ot M47.26 OTHER SPONDYLOSIS WITH RADICULOPATHY, MARTY 12/21/2018 SHILPI LEVY MD Ot M48.07 SPINAL STENOSIS, LUMBOSACRAL REGION 12/21/2018 SHILPI LEVY MD Ot M51.17 INTVRT DISC DISORDERS W RADICULOPATHY, L 12/21/2018 SHILPI LEVY MD Ot Z98.890 OTHER SPECIFIED POSTPROCEDURAL STATES 12/22/2018 SHILPI LEVY MD Ot M47.26 OTHER SPONDYLOSIS WITH RADICULOPATHY, MARTY 12/22/2018 SHILPI LEVY MD Ot M48.07 SPINAL STENOSIS, LUMBOSACRAL REGION 12/22/2018 MILDRED KUMAR SHILPI Torres Ot M51.17 INTVRT DISC DISORDERS W RADICULOPATHY, L 12/22/2018 MILDRED KUMAR, SHILPI Torres Ot Z98.890 OTHER SPECIFIED POSTPROCEDURAL STATES Procedures Code Description Performed By Performed On [id number] REPLACEMENT OF CERV DISC WITH SYNTH SUB, 12/28/2016 Results Test Result Range Complete urinalysis with reflex to culture - 08/06/16 14:40 Urine color determination YELLOW NRG Urine clarity determination CLEAR NRG Urine pH measurement by test strip 6 5-9 Specific gravity of urine by test strip 1.010 1.016- 1.022 Urine protein assay by test strip, semi-quantitative NEGATIVE NEGATIVE Urine glucose detection by automated test strip NEGATIVE NEGATIVE Erythrocytes detection in urine sediment by light microscopy NEGATIVE NEGATIVE Urine ketones detection by automated test strip NEGATIVE NEGATIVE Urine nitrite detection by test strip NEGATIVE NEGATIVE Urine total bilirubin detection by test strip NEGATIVE NEGATIVE Urine urobilinogen measurement by automated test strip (mass/volume) NORMAL NORMAL Urine leukocyte esterase detection by dipstick 1+ NEGATIVE Automated urine sediment erythrocyte count by microscopy (number/high power field) NONE NRG Automated urine sediment leukocyte count by microscopy (number/high power field ) NONE NRG Bacteria detection in urine sediment by light microscopy NEGATIVE NRG Squamous epithelial cells detection in urine sediment by light microscopy RARE NRG Crystals detection in urine sediment by light microscopy NONE NRG Casts detection in urine sediment by light microscopy NONE NRG Mucus detection in urine sediment by light microscopy NEGATIVE NRG Complete urinalysis with reflex to culture NO NRG Complete blood count (CBC) with automated white blood cell (WBC) differential - 10/08/16 16:24 Blood leukocytes automated count (number/volume) 5.9 10*3/uL 4.3-11.0 Blood erythrocytes automated count (number/volume) 5.11 10*6/uL 4.35-5.85 Venous blood hemoglobin measurement (mass/volume) 15.1 g/dL 13.3-17.7 Blood hematocrit (volume fraction) 44 % 40-54 Automated erythrocyte mean corpuscular volume 86 [foz_us] 80-99 Automated erythrocyte mean corpuscular hemoglobin (mass per erythrocyte) 30 pg 25-34 Automated erythrocyte mean corpuscular hemoglobin concentration measurement ( mass/volume) 34 g/dL 32-36 Automated erythrocyte distribution width ratio 13.8 % 10.0-14.5 Automated blood platelet count (count/volume) 235 10*3/uL 130-400 Automated blood platelet mean volume measurement 10.4 [foz_us] 7.4-10.4 Automated blood neutrophils/100 leukocytes 38 % 42-75 Automated blood lymphocytes/100 leukocytes 41 % 12-44 Blood monocytes/100 leukocytes 15 % 0-12 Automated blood eosinophils/100 leukocytes 6 % 0-10 Automated blood basophils/100 leukocytes 1 % 0-10 Blood neutrophils automated count (number/volume) 2.2 10*3 1.8-7.8 Blood lymphocytes automated count (number/volume) 2.4 10*3 1.0-4.0 Blood monocytes automated count (number/volume) 0.9 10*3 0.0-1.0 Automated eosinophil count 0.3 10*3/uL 0.0-0.3 Automated blood basophil count (count/volume) 0.1 10*3/uL 0.0-0.1 Whole blood basic metabolic panel - 10/08/16 16:24 Serum or plasma sodium measurement (moles/volume) 141 mmol/L 135-145 Serum or plasma potassium measurement (moles/volume) 4.4 mmol/L 3.6-5.0 Serum or plasma chloride measurement (moles/volume) 104 mmol/L 98-107 Carbon dioxide 29 mmol/L 21-32 Serum or plasma anion gap determination (moles/volume) 8 mmol/L 5-14 Serum or plasma urea nitrogen measurement (mass/volume) 12 mg/dL 7-18 Serum or plasma creatinine measurement (mass/volume) 1.03 mg/dL 0.60-1.30 Serum or plasma urea nitrogen/creatinine mass ratio 12 NRG Serum or plasma creatinine measurement with calculation of estimated glomerular filtration rate > NRG Serum or plasma glucose measurement (mass/volume) 90 mg/dL 70-105 Serum or plasma calcium measurement (mass/volume) 9.5 mg/dL 8.5-10.1 THYROID STIMULATING HORMONE - 10/08/16 16:24 THYROID STIMULATING HORMONE 1.44 u[iU]/mL 0.35-4.94 Cyanocobalamin measurement - 10/08/16 16:24 Vitamin B12 509 pg/mL 200-1000 IMMUNOFIXATION W/INTERP, SERUM - 12/09/16 08:39 Pathology consultation and report FOOTNOTE NRG Serum or plasma nordiazepam detection Complete Complete Pathology report addendum in Specimen Narrative FOOTNOTE BANNER Quantitative urine kappa and lambda free light chains measurement - 12/09/16 08 :39 Quantitative serum kappa light chain measurement 10.57 % 3.30-19.40 Quantitative serum lambda light chain measurement 8.54 % 5.71-26.30 Serum immunoglobulin free kappa light chains/immunoglobulin lambda light chains mass ratio 1.24 % 0.26-1.65 Complete blood count (CBC) with automated white blood cell (WBC) differential - 12/23/16 13:48 Blood leukocytes automated count (number/volume) 7.0 10*3/uL 4.3-11.0 Blood erythrocytes automated count (number/volume) 5.05 10*6/uL 4.35-5.85 Venous blood hemoglobin measurement (mass/volume) 15.0 g/dL 13.3-17.7 Blood hematocrit (volume fraction) 44 % 40-54 Automated erythrocyte mean corpuscular volume 86 [foz_us] 80-99 Automated erythrocyte mean corpuscular hemoglobin (mass per erythrocyte) 30 pg 25-34 Automated erythrocyte mean corpuscular hemoglobin concentration measurement ( mass/volume) 34 g/dL 32-36 Automated erythrocyte distribution width ratio 13.8 % 10.0-14.5 Automated blood platelet count (count/volume) 260 10*3/uL 130-400 Automated blood platelet mean volume measurement 10.4 [foz_us] 7.4-10.4 Automated blood neutrophils/100 leukocytes 48 % 42-75 Automated blood lymphocytes/100 leukocytes 41 % 12-44 Blood monocytes/100 leukocytes 7 % 0-12 Automated blood eosinophils/100 leukocytes 3 % 0-10 Automated blood basophils/100 leukocytes 1 % 0-10 Blood neutrophils automated count (number/volume) 3.4 10*3 1.8-7.8 Blood lymphocytes automated count (number/volume) 2.9 10*3 1.0-4.0 Blood monocytes automated count (number/volume) 0.5 10*3 0.0-1.0 Automated eosinophil count 0.2 10*3/uL 0.0-0.3 Automated blood basophil count (count/volume) 0.1 10*3/uL 0.0-0.1 Methicillin resistant Staphylococcus aureus (MRSA) screening culture - 13:48 Methicillin resistant Staphylococcus aureus (MRSA) screening culture NEG NRG Encounters ACCT No. Visit Date/Time Discharge Status Pt. Type Provider Facility Loc./Unit Complaint [id number] 12/23/2018 13:00:00 12/23/2018 13:00:00 CAN Preadmit SHILPI LEVY MD [facility] PREOP LUMBAR RADICULOPATHY [id number] 12/21/2018 10:01:00 12/21/2018 23:59:59 CLS Outpatient SHILPI LEVY MD [facility] RAD SEVERE L LEG RADICULOPATHY [id number] 01/14/2017 11:03:00 03/09/2017 14:03:00 DIS Outpatient SHILPI LEVY MD [facility] REHAB CERVICAL TDR [id number] 12/28/2016 06:13:00 12/29/2016 08:40:00 DIS Inpatient SHILPI LEVY MD [facility] 4TH HERNIATED NUCLEOUS PULPOSIS [id number] 12/23/2016 13:00:00 12/23/2016 13:55:00 DIS Outpatient SHILPI LEVY MD [facility] PREOP HNP [id number] 12/09/2016 08:30:00 12/09/2016 23:59:59 CLS Outpatient JACQUIE VALADEZ MD [facility] RAD NUMBNESS IN HANDS [id number] 10/08/2016 16:13:00 10/08/2016 23:59:59 CLS Outpatient AMY BURGESS MD [facility] LAB LIMB/WEAKNESS FATIGUE [id number] 08/06/2016 15:33:00 08/06/2016 23:59:59 CLS Outpatient AMY BURGESS MD [facility] LAB FLANK PAIN [id number] 02/01/2016 08:40:00 02/01/2016 23:59:59 CLS Outpatient AMY BURGESS MD [facility] LAB SCREENING,WELLNESS,GOUT [id number] 09/14/2014 11:44:00 09/14/2014 23:59:59 CLS Outpatient LAZARUS ROLDAN MD [facility] LAB GOUT [id number] 03/15/2014 08:13:00 03/15/2014 23:59:59 CLS Outpatient LAZARUS ROLDAN MD [facility] LAB GOUT,MED AT RISK [id number] 09/12/2013 08:17:00 09/12/2013 23:59:59 CLS Outpatient LAZARUS ROLDAN MD [facility] LAB MEDICATION AT NIGHT [id number] 03/14/2013 07:47:00 05/03/2013 09:19:00 DIS Outpatient LAZARUS ROLDAN MD [facility] REHAB R HIP PAIN,GROIN STRAIN,ILIOPSOAS STRAIN [id number] 04/28/2013 06:43:00 04/28/2013 23:59:59 CLS Outpatient AMY BURGESS MD [facility] SDC SCREENING [id number] 04/28/2013 06:41:00 04/28/2013 23:59:59 CLS Outpatient LAZARUS ROLDAN MD [facility] LAB GOUT,SCREENING [id number] 04/27/2013 07:18:00 04/27/2013 23:59:59 CLS Outpatient AMY BURGESS MD [facility] PREOP SCREENING [id number] 09/14/2012 09:14:00 Document Registration [id number] 03/22/2012 08:14:00 Document Registration [id number] 03/18/2012 09:26:00 Document Registration [id number] 09/25/2011 07:37:00 Document Registration [id number] 06/22/2011 07:10:00 Document Registration [id number] 01/28/2011 14:47:00 Document Registration [id number] 01/24/2010 11:10:00 Document Registration [id number] 11/15/2009 08:27:00 Document Registration
[2018-12-26] MEDS ORDERED: ONDANSETRON 4 MG/2 ML (SDV) Z0FRAN IV ONE (12:45)
[2018-12-26] MEDS ORDERED: fentaNYL INJECTION 100 MCG/2 ML AMP IV ONE (13:30)
[2018-12-26] MEDS ORDERED: ceFAZolin 2 GM IV Premixed 50 ML ONE (14:06)
[2018-12-26] MEDS ORDERED: ceFAZolin 2 GM/50 ML PRE-MIX IVPB IV ONE (14:30)
--- NOTE | 2018-12-26 15:29 | Progress Note-Post Operative ---
Post-Operative Progess Note Surgeon (s)/Framing Mill Operator Helper (s) Surgeon SHILPI LEVY MD Framing Mill Operator Helper: NEEL Acosta Pre-Operative Diagnosis Lumbar Far Lateral L4-5 HNP, Radiculpathy Post-Operative Diagnosis Same Procedure & Operative Findings Date of Procedure 12/26/18 Procedure Performed/Findings Left L4-5 Far Lateral Microdiscectomy Anesthesia Type GETA Estimated Blood Loss Estimated blood loss (mL): minimal Specimens/Packing Specimens Removed disc, not sent to pathology SHILPI LEVY MD Dec 26, 2018 15:29
[2018-12-26] MEDS ORDERED: TIZA4TAB11 PO (15:31)
[2018-12-26] MEDS ORDERED: HYDR-4196 PO (15:31)
[2018-12-26] MEDS ORDERED: MEPERIDINE (DEMEROL) INJ 50 MG/ML ONE (15:35)
[2018-12-26] MEDS ORDERED: PHENYLEPHRINE 100 MCG/ML 10 ML (ANESTHESIA) SYR ONE (15:46)
[2018-12-26] MEDS ORDERED: HYDROmorphone 2 MG/ML VIAL (DILAUDID) IV ONE (16:00)
[2018-12-26] MEDS ORDERED: morphine INJ 10 MG/ML 1ML (SYR OR VIAL) IVP ONE (16:00)
[2018-12-26] MEDS ORDERED: ONDANSETRON 4 MG/2 ML (SDV) Z0FRAN IVP PRN (16:00)
[2018-12-26] MEDS ORDERED: MEPERIDINE (DEMEROL) INJ 50 MG/ML IVP ONE (16:00)
--- NOTE | 2018-12-26 16:20 | Diagnostic Imaging Report ---
Indication: Intraoperative localization. Findings: Two fluoroscopic images of the lumbar spine were obtained. 3 seconds of fluoroscopy was utilized. There is a surgical instrument posterior to the L4-5 disc space. Impression: Intraoperative fluoroscopic localization as described. Dictated by: Dictated on workstation # [id number]
--- NOTE | 2018-12-26 16:26 | Anesthesia-General Post-Op ---
General Patient Condition Mental Status/LOC: Same as Preop Cardiovascular: Satisfactory Nausea/Vomiting: Absent Respiratory: Satisfactory Pain: Controlled Complications: Absent Post Op Complications Complications None Follow Up Care/Instructions Patient Instructions None needed. Anesthesia/Patient Condition Patient Condition Patient is doing well, no complaints, stable vital signs, no apparent adverse anesthesia problems. No complications reported per nursing. D/C home per [facility] Criteria: Yes FOSTER FORBES CRNA Dec 26, 2018 16:26
[2018-12-26] MEDS ORDERED: HYDROcodone/APAP 10 MG/325 MG (LORTAB) TAB PO ONE ×2 (17:15)
--- NOTE | 2018-12-26 17:29 | NUR ---
LORTAB 10/325 MG, ONE TAB, GIVEN PO FOR C/O LOW BACK SURGICAL SITE PAIN RATED 4.
--- NOTE | 2018-12-26 18:00 | NUR ---
PAIN RATED 3, HAS BEEN UP IN ROOM TO DRESS FOR HOME. DSG REMAINS D/I TO SURGICAL SITE. STATES HE IS READY FOR DISMISSAL.
--- NOTE | 2018-12-27 01:33 | OPERATIVE REPORT ---
DATE OF SERVICE: 12/26/2018 PREOPERATIVE DIAGNOSIS: Far lateral lumbar disk herniation and left leg sciatica. POSTOPERATIVE DIAGNOSIS: Far lateral lumbar disk herniation and left leg sciatica. PROCEDURE PERFORMED: Left L4-L5 far lateral extraforaminal diskectomy. DATE AND TIME OF SURGERY: Please see anesthesia record. SURGEON: Chilo Levy MD SHUTTLE REPAIRER: REFUGIO Acosta. ROLE OF NOTE TELLER: Aid in retraction of the procedure, suction around the neural elements, and wound closure. ANESTHESIA: General endotracheal. ESTIMATED BLOOD LOSS: Less than 50 mL. INTRAVENOUS FLUIDS: Please see anesthesia record. ANTIBIOTICS: Ancef. COMPLICATIONS: None. SPECIMENS: Disk herniation, but not sent for pathologic examination. NEUROMONITORING: Standard intraoperative neuromonitoring carried out by means of real time continuous high quality bidirectional mode, audio and visual communication both the integration technician and surgeon by Dr. Agee was performed. SSEPs, EMGs, TOFs were carried out continuously throughout the procedure, stable. DESCRIPTION OF PROCEDURE: The patient was taken to the preoperative holding area and brought back to the operative suite After adequate induction of general anesthesia, preoperative antibiotics were carefully turned prone on Trent table, careful padding to all extremities, sterilely prepped and draped to the posterior lumbar spine. Previous incision was visualized and for trajectories sake a slightly superior and lateral incision was made. Dissection was carried down to the level of the lamina. C-arm was brought in for confirmation once the L3-L4 level was confirmed. Shadow-Line retractor was placed and dissection around the lateral edge of the pars and the superior portion of the 4-5 facet joint was performed. A bur was used to thin out the pars and then a dissection was carried down to the intertransverse ligament. The root was visualized in the foramen and a tail of a large disk fragment was seen extruding inferior medial to the root, it was retracted superiorly and a large fragment of disk material was removed from underneath the root. Micro nerve hook was utilized to palpate under the root. No other fragments were noticed. Once it was clear there was only a single large solitary extruded fragment. Bipolar cautery was utilized to maintain hemostasis. FloSeal was utilized as well. Once hemostasis was sufficient, wound was copiously irrigated. A further check for fragments was performed, but the root was clearly free. At this point, the wound was closed in layers. The patient transferred to recovery room in stable condition and tolerated the procedure well with stable spinal monitoring. Job ID: [id number] DocumentID: [id number] Dictated Date: 12/26/2018 15:27:56 Meteorology Teacher Date: 12/27/2018 01:32:22 Dictated By: CHILO LEVY MD
== END 2018-12-26 18:00 | disposition home or self-care (01) ==
LOC: SDC 11:36 → EEVIPCON 13:00 → SDC 18:00
PROVIDERS: ATTEND Orthopaedic Surgery Orthopaedic Surgery of the Spine
DX: M51.16 Intervertebral disc disorders with radiculopathy, lumbar region (principal); G62.9 Polyneuropathy, unspecified; Z11.2 Encounter for screening for other bacterial diseases
CPT/HCPCS: 87081

== ENCOUNTER 2019-02-10 13:52 | Outpatient (RCR) | payer OTHER ==
[~2019-02-10 13:52] MED LIST changes: +DEXL30CA2 PO; +DOCU-163 PO; +HYDR-3812 PO; +HYDR-4196 PO; +TIZA4TAB11 PO
== END 2019-02-15 16:07 | disposition home or self-care (01) ==
PROVIDERS: ATTEND Physician Assistant
DX: M54.5 Low back pain (principal); Z98.890 Other specified postprocedural states

== ENCOUNTER → 2019-02-28 | Outpatient (CLI) | payer OTHER ==
[~2019-02-28] MED LIST changes: +GADOBUTROL 10 MMOL/10 ML (GADAVIST) VIAL IV ONE
--- NOTE | 2019-02-28 12:46 | Diagnostic Imaging Report ---
PROCEDURE: MRI lumbar spine with and without contrast. TECHNIQUE: Multiplanar, multisequence MRI of the lumbar spine was performed with and without contrast. INDICATION: Recent microdiscectomy. Left leg weakness and numbness. COMPARISON: MRI of the lumbar spine without contrast 12/21/2018. FINDINGS: There are five lumbar type vertebral bodies for the purposes of this report. Minimal retrolisthesis of L5 on S1 is stable. Alignment is otherwise unremarkable. Vertebral body heights are preserved. Moderate diffuse degenerative endplate changes. Bone marrow signal is otherwise unremarkable. No abnormal signal or enhancement in the conus which terminates at L1. Normal morphology of the cauda equina without abnormal enhancement. L1-L2: Small central radial tear is stable. Disc space height loss contributes to mild bilateral neural foraminal narrowing. No spinal canal or lateral recess narrowing. L2-L3: No spinal canal, lateral recess or neural foraminal narrowing. L3-L4: No spinal canal, lateral recess or neural foraminal narrowing. L4-L5: Postoperative findings of a left foraminotomy. Annular disc bulge combines with ligamentous hypertrophy result in moderate bilateral lateral recess and mild spinal canal narrowing. There is also moderate right neural foraminal narrowing due to facet arthropathy and disc space height loss. L5-S1: Left hemilaminotomy. Left paracentral disc protrusion results in moderate left lateral recess, narrowing, and contributes to advanced left neural foraminal narrowing. Disc space height loss and facet arthropathy also result in moderate right neural foraminal narrowing. No substantial spinal canal narrowing. IMPRESSION: 1. Postoperative findings of a left hemilaminotomy at L5-S1. Left foraminotomy at L4-L5. 2. No high-grade spinal canal narrowing. Spondylotic changes result in [id number] neural foraminal narrowing at L4-L5 and L5-S1 on the right. 3. Left paracentral disc protrusion results in moderate left lateral recess and advanced left neural foraminal narrowing at L5-S1. Dictated by: Dictated on workstation # [id number]
== END ==
LOC: RAD 08:23
PROVIDERS: ATTEND Orthopaedic Surgery Orthopaedic Surgery of the Spine
DX: M47.27 Other spondylosis with radiculopathy, lumbosacral region (principal); M48.07 Spinal stenosis, lumbosacral region; M51.17 Intervertebral disc disorders with radiculopathy, lumbosacral region; Z98.890 Other specified postprocedural states
CPT/HCPCS: 36415; 72158; 82565

== ENCOUNTER → 2020-02-20 | Outpatient (CLI) | payer OTHER ==
[~2020-02-20] MED LIST changes: +ACHD5005 PO; -GADOBUTROL 10 MMOL/10 ML (GADAVIST) VIAL IV ONE; -HYDR-3812 PO; +MULT-567 PO; -MULT1TAB69 PO
[2020-02-20 15:50] LABS: BASOPHILS # (AUTO) 0.1 10^3/uL (0.0-0.1); BASOPHILS % (AUTO) 1 % (0-10); EOSINOPHILS # (AUTO) 0.3 10^3/uL (0.0-0.3); EOSINOPHILS % (AUTO) 3 % (0-10); HEMATOCRIT 44 % (40-54); HEMOGLOBIN 15.2 G/DL (13.3-17.7); LYMPHOCYTES # (AUTO) 3.2 X 10^3 (1.0-4.0); LYMPHOCYTES % (AUTO) 41 % (12-44); MEAN CORPUSCULAR HEMOGLOBIN 30 PG (25-34); MEAN CORPUSCULAR HGB CONC 34 G/DL (32-36); MEAN CORPUSCULAR VOLUME 87 FL (80-99); MEAN PLATELET VOLUME 10.6 FL (7.4-10.4); MONOCYTES # (AUTO) 0.6 X 10^3 (0.0-1.0); MONOCYTES % (AUTO) 8 % (0-12); NEUTROPHILS # (AUTO) 3.8 X 10^3 (1.8-7.8); NEUTROPHILS % (AUTO) 48 % (42-75); PLATELET COUNT 255 10^3/uL (130-400); RED CELL DISTRIBUTION WIDTH 13.9 % (10.0-14.5); WHITE BLOOD COUNT 7.9 10^3/uL (4.3-11.0)
[2020-02-20 16:00] LABS: ALBUMIN 4.4 GM/DL (3.2-4.5); CHLORIDE 106 MMOL/L (98-107); POTASSIUM 4.1 MMOL/L (3.6-5.0); SODIUM 142 MMOL/L (135-145)
[2020-02-20 16:01] LABS: CALCIUM 9.3 MG/DL (8.5-10.1)
[2020-02-20 16:02] LABS: GLUCOSE 86 MG/DL (70-105)
[2020-02-20 16:03] LABS: TOTAL PROTEIN 7.3 GM/DL (6.4-8.2)
[2020-02-20 16:04] LABS: BILIRUBIN,TOTAL 0.6 MG/DL (0.1-1.0); CARBON DIOXIDE 27 MMOL/L (21-32)
[2020-02-20 16:06] LABS: ALKALINE PHOSPHATASE 76 U/L (40-136); CREATININE SERUM 1.16 MG/DL (0.60-1.30); GFR ESTIMATED > 60
[2020-02-20 16:07] LABS: BUN/CREATININE RATIO 10
[2020-02-20 16:09] LABS: ALANINE AMINOTRANSFERASE 23 U/L (0-55); URIC ACID 4.9 MG/DL (2.6-7.2)
== END ==
LOC: LAB 15:20
PROVIDERS: ATTEND Internal Medicine
DX: Z01.89 Encounter for other specified special examinations (principal)
CPT/HCPCS: 36415; 80053; 84153; 84550; 85025

== ENCOUNTER → 2020-07-24 | Outpatient (CLI) | payer OTHER | LOC: LABNPT 08:49 | PROVIDERS: ATTEND Internal Medicine | DX: J02.9 Acute pharyngitis, unspecified (principal); Z20.828 Contact with and (suspected) exposure to other viral communicable diseases | CPT/HCPCS: 87635 ==